=== PATIENT | female | born 1930 | race Caucasian/White ===

== ENCOUNTER → 2017-08-24 | Outpatient (CLI) | payer MEDICARE, OTHER ==
[~2017-08-24] MED LIST: AMLO5TAB2 PO; DIGO125T81 PO; ESOM40CA PO; FLUT1DIS5 IH; HYDR-3237 PO; LEVO50TA PO; LEVO50TA5 PO; POTA10TA11 PO; POTA20TA91 PO; PRAV40TA2 PO; SOTA80TA PO; TIOT18CA INH; TORS20TA2 PO; VERA120T5 PO; WARF5TAB PO
== END | disposition home or self-care (01) ==
LOC: CFH 10:52
PROVIDERS: ATTEND Internal Medicine
DX: Z13.820 Encounter for screening for osteoporosis (principal); M85.88 Other specified disorders of bone density and structure, other site; N95.1 Menopausal and female climacteric states; M89.9 Disorder of bone, unspecified
CPT/HCPCS: 77080

== ENCOUNTER → 2017-10-26 | Outpatient (CLI) | payer MEDICARE, OTHER | END | disposition home or self-care (01) | LOC: CFH 11:41 | PROVIDERS: ATTEND Nurse Practitioner | DX: M40.294 Other kyphosis, thoracic region (principal); M54.9 Dorsalgia, unspecified | CPT/HCPCS: 72072 ==